=== PATIENT | female | born 1985 | race American Indian/Alaskan Native ===

== ENCOUNTER 2018-10-27 13:57 | Emergency (ER) | payer MEDICAID ==
[2018-10-27 14:02] VITALS: BP 138/93
[2018-10-27] MEDS ORDERED: NORCO 5/325 PO ONE (14:45)
--- NOTE | 2018-10-27 14:45 | Emergency Department Report ---
Eye Injury/Foreign Body - HPI Duration: Today Eye Location: Left Severity: Moderate Tetanus Status: Up to Date Eye Symptoms: Eye Pain: Yes (6/10 and feels irritated and), Blurred Vision: No, Eye Redness: Yes, Grinding/Hammering Metal: No, Used Eye Protection: No, Contact Lens Use: No, Recalls Injury: Yes, Photophobia: Yes Other History: This is 33-year-old female who reports the emergency room report that her baby accidentally poked her in the left eye. It was documented on triage note that patient having right eye problem but patient was poked in left eye. Patient reports eye pain at 6 out of 10 and irritating. Sensitivity to light. Pain is worse with blinking. positive foreign body sensation. Denies wearing contact and reported that her tetanus shot is up-to-date. Denies any lo ss of vision. ED Review of Systems ROS: Stated complaint: PUNCTURE EYE Other details as noted in HPI Constitutional: denies: chills, fever Eyes: eye pain, vision change (sensitivity to light). denies: eye discharge ENT: denies: throat pain, congestion Respiratory: denies: cough Cardiovascular: denies: chest pain Gastrointestinal: denies: nausea, vomiting Skin: denies: rash Neurological: denies: headache, vertigo ED Past Medical Hx - Past Medical History Previous Medical History?: No - Surgical History Past Surgical History?: No - Family History Family history: hypertension - Social History Smoking Status: Never Smoker Substance Use Type: None - Medications Home Medications: Home Medications Medication Instructions Recorded Confirmed Last Taken Type Acetaminophen/Codeine [Tylenol 1 tab PO Q6H PRN #14 tab 10/27/18 Unknown Rx /Codeine # 3 tab] Gentamicin 0.3% Ophth Soln 2 drops OS Q8H 7 Days #1 bottle 10/27/18 Unknown Rx Ibuprofen [Motrin] 800 mg PO Q8HR PRN #12 tablet 10/27/18 Unknown Rx Eye Injury Exam - Exam General: Vital signs noted. No distress. Alert and acting appropriately. This 33-year-old female nourished in no acute distress. - Visual Acuity Right Vision Acuity Degree: 20/25 Eye Exam: Both EOMI, Neither Injection, Neither Chemosis, Neither Abnormal Pupil, Neither Eye Foreign Body, Neither Lid Foreign Body, Neither Mucous Discharge, Neither Purulent Discharge, Neither Fluorescein Uptake, Neither Corneal Edema, Neither Photophobia Left Vision Acuity Degree: 20/40 Eye Exam: Left Injection, Left Fluorescein Uptake, Left Photophobia, Both EOMI, Neither Chemosis, Neither Abnormal Pupil, Neither Eye Foreign Body, Neither Lid Foreign Body, Neither Mucous Discharge, Neither Purulent Discharge, Neither Corneal Edema Exam: SKELTON LAMP exam. Left eye examination under Skelton lamp. Tetracaine ophthalmic, 2 drops instilled and left eye with positive burning. Fluorescein stain to the left eye, left eye visualize Wood lamp showed small corneal abrasion left cornea. BSS fluid used to flush out. Patient reports that her eye feels better after tetracaine drop. Immunizations up-to-date per patient. Bilateral Vision Acuity Degree: 20/30 Eye Exam: Left Injection, Left Fluorescein Uptake, Left Photophobia, Both EOMI, Neither Chemosis, Neither Abnormal Pupil, Neither Eye Foreign Body, Neither Lid Foreign Body, Neither Mucous Discharge, Neither Purulent Discharge, Neither Corneal Edema Exam: Funduscopic exam is normal in both eyes ED Course Vital Signs 10/27/18 13:59 Temperature 98.1 F Pulse Rate 75 Respiratory 16 Rate Blood Pressure 138/93 O2 Sat by Pulse 99 Oximetry - Reevaluation(s) Reevaluation #1: 10/27/18 15:20 Please see exam note for procedure on with plan. Patient given [place] 5/325 2 tablets by mouth prior to procedure. See notes VISUAL acuity ED Medical Decision Making - Medical Decision Making This is a peripheral female here report that she has left eye injury to warrant parties sensation. She is complaining of pain without any loss of vision. Visual acuity done and charted. Skelton lamp procedure done, please see note for details. She was given [place] 5/25 2 tablets by mouth emergency room for pain and her pain has been relief. Patient with left corneal abrasion. Immunizations up-to-date including tetanus. Patient discharged home in stable condition with prescription for gentamicin ophthalmic drops with instructions, Tylenol No. 3 and Motrin. I instructed her to follow up with [facility] in 2 days and to wear sunglasses to prevent photophobia. She was understanding and on discharge instruction, medication and treatment plan. Critical care attestation.: If time is entered above; I have spent that time in minutes in the direct care of this critically ill patient, excluding procedure time. ED Disposition Clinical Impression: Left eye pain Left corneal abrasion Qualifiers: Encounter type: initial encounter Qualified Code(s): S05.02XA - Injury of conjunctiva and corneal abrasion without foreign body, left eye, initial encounter Disposition: TO HOME OR SELFCARE Is pt being admited?: No Does the pt Need Aspirin: No Condition: Stable Instructions: Corneal Abrasion (ED), Eye Pain (ED) Additional Instructions: Read discharge instructions on corneal abrasion Wear Glasses to prevent photophobia Take medication as prescribed See [facility] in 2 days If you experience loss of vision or worsening symptoms please go to [facility] or closest ER Prescriptions: Acetaminophen/Codeine [Tylenol /Codeine # 3 tab] 1 tab PO Q6H PRN #14 tab PRN Reason: moderate to severe pain Gentamicin 0.3% Ophth Soln 2 drops OS Q8H 7 Days #1 bottle Ibuprofen [Motrin] 800 mg PO Q8HR PRN #12 tablet PRN Reason: eye pain Referrals: RISSA GONZALEZ MD [Staff Physician] - 10/29/18 Forms: Work/School Release Form(ED)
[2018-10-27] MEDS ORDERED: BSS OS ONE (14:46)
[2018-10-27] MEDS ORDERED: FUL-GLO OP ONE (14:46)
[2018-10-27] MEDS ORDERED: TETRACAINE 0.5% OS ONE (14:46)
== END 2018-10-27 15:37 | disposition home or self-care (01) ==
LOC: ED 13:57
DX: S05.02XA Injury of conjunctiva and corneal abrasion without foreign body, left eye, initial encounter (principal); Z88.1 Allergy status to other antibiotic agents; Z88.2 Allergy status to sulfonamides; X58.XXXA Exposure to other specified factors, initial encounter; Y93.89 Activity, other specified; Y92.89 Other specified places as the place of occurrence of the external cause; Y99.8 Other external cause status
CPT/HCPCS: 99283